=== PATIENT | male | born 1960 | race African-American/Black ===

== ENCOUNTER 2018-07-23 11:30 | Emergency (ER) | payer SELFPAY ==
[~2018-07-23] VITALS: Ht 193 cm; Wt 93.0 kg
--- NOTE | 2018-07-23 12:27 | NUR ---
VINCENT CHERRY IN TRIAGE TO EVAL PT.
--- NOTE | 2018-07-23 13:22 | Diagnostic Imaging Report ---
EXAMINATION: PA and lateral views of the chest. COMPARISON: None CLINICAL HISTORY: Cough DISCUSSION: Lines/tubes: None. Lungs: The lungs are well inflated and clear. There is no evidence of pneumonia or pulmonary edema. Pleura: There is no pleural effusion or pneumothorax. Heart and mediastinum: The cardiomediastinal silhouette is normal. Bones and soft tissues: No acute bony abnormalities. IMPRESSION: No acute cardiopulmonary abnormalities. Signed by: Dr. Cordell Allred M.D. on 07/23/2018 1:19 PM
== END 2018-07-23 14:22 | disposition home or self-care (01) ==
LOC: ER 11:30
DX: R05 Cough (principal); R51 Headache; J30.1 Allergic rhinitis due to pollen; J00 Acute nasopharyngitis [common cold]; I10 Essential (primary) hypertension; E78.5 Hyperlipidemia, unspecified
CPT/HCPCS: 71046; 99282